=== PATIENT | female | born 1965 | race Caucasian/White ===

== ENCOUNTER → 2021-11-08 09:20 | Outpatient (CLI) | payer OTHER, SELFPAY ==
[2021-11-08 11:38] LABS: COVID19 -Nasal RAPID Negative (Negative)
== END ==
PROVIDERS: PCP Family Medicine; Visit Provider Surgery
DX: Z01.812 Encounter for preprocedural laboratory examination (principal); Z20.822 Contact with and (suspected) exposure to COVID-19
CPT/HCPCS: 87635; C9803

== ENCOUNTER 2021-11-09 08:38 | Day surgery (SDC) | payer OTHER, SELFPAY ==
--- NOTE | 2021-11-09 | PATH_ITS ---
[facility] Accession Number: [id number] . 01 Material submitted: . PART A: colon - ASCENDING COLON POLYP PART B: colon - TRANSVERSE COLON POLYP PART C: sigmoid colon - SIGMOID COLON POLYP 4MM . 01 Diagnosis: A. Ascending Colon, Polyp, Biopsy: Tubular adenoma. . B. Transverse Colon, Polyp, Biopsy: Tubular adenoma. . C. Sigmoid Colon, Polyp 4 mm, Biopsy: Tubular adenoma. MRV 11/13/2021 1057 Local . 01 Electronically signed: . Oralia Gurrola MD, Pathologist NPI- [id number] . 01 Gross description: . Part A: ASCENDING COLON POLYP: Received in formalin is 1 fragment(s) of hicks, soft tissue measuring 0.7 x 0.5 x 0.2 cm submitted entirely in 1 cassette(s) Part B: TRANSVERSE COLON POLYP: Received in formalin is 1 fragment(s) of hicks, soft tissue measuring 0.3 x 0.2 x 0.2 cm submitted entirely in 1 cassette(s) Part C: SIGMOID COLON POLYP 4MM: Received in formalin is 1 fragment(s) of hicks, soft tissue measuring 0.3 x 0.3 x 0.2 cm submitted entirely in 1 cassette(s) /BOGDAN 11/10/2021 1903 Local . 01 Pathologist provided ICD-10: D12.2, D12.3, D12.5 . 01 CPT . 865219, 265531, 824403 Specimen Comment: A courtesy copy of this report has been sent to [phone] Performed at: 01 [facility] [address] [place] [address] Suite [facility], [place], [place] [id number] MD Edi Cherry MD Phone: [phone]
[2021-11-09 09:01] VITALS: BMI 23.6
[2021-11-09 09:07] VITALS: BP 128/72; PULSE 84; RESP 14; TEMP 36.3; O2SAT 100
[2021-11-09] MEDS: LACTATED RINGERS 1,000 ML 84 ML IV (09:12)
--- NOTE | 2021-11-09 10:55 | PM.HP.1 ---
History of Present Illness History of Present Illness Date Patient Seen: 11/09/21 Time Patient Seen: 10:55 Chief complaint: SDC Narrative: Nikki is a 56-year-old woman who has never had a colonoscopy. She has no known family history of colon cancer. Patient History Family & Social History Social History: household members spouse Tobacco & Substance use: Smoking Status Never smoker alcohol intake current alcohol intake frequency a few times a week Substance Use Type does not use Meds Home Medications and Allergies Home Medications Medication Instructions Recorded Confirmed Type Emergen-C 1,000 mg DAILY 11/09/21 11/09/21 History terbinafine HCl 250 mg tablet 1 tab DAILY 11/09/21 11/09/21 History Allergies Allergy/AdvReac Type Severity Reaction Status Date / Time GRASSES Allergy Unknown Uncoded 11/09/21 08:55 Exam Vital Signs (past 8 hours): - 11/09/21 09:07 Temperature 97.4 F L Pulse Rate 84 Respiratory Rate 14 Blood Pressure 128/72 Pulse Oximetry 100 Oxygen Delivery Method Room Air Oxygen Delivery Method Room Air Const General: healthy appearing Resp Effort & Inspection: normal respiratory effort Neuro General: patient alert and patient awake Assessment & Plan Assessment and plan (1) Colon cancer screening: Status: Acute Plan Reviewed the risks and benefits of colonoscopy. She would like to proceed. COVID-19 COVID-19 status: Negative Result date/Date tested (Pos, Neg/Pending): 11/08/21 Time Spent With Patient Critical Care time: I spent a total of [] minutes of critical care time on this patient's care today; this time is exclusive of procedural time.
[2021-11-09] MEDS: MIDAZOLAM 5 MG/5 ML VIAL IV (11:11)
[2021-11-09] MEDS: fentaNYL 250 MCG/5 ML INJ 125 MCG IV (11:11)
--- NOTE | 2021-11-09 11:29 | PM.OP.COLON ---
Operative Date/Time/Diagnoses Date of procedure: 11/09/21 Time of procedure: 11:29 Pre-op diagnosis: Colon cancer screening Post-op diagnosis: same Procedure & Clinicians Study performed: Colonoscopy Same procedure as scheduled: Yes Surgeon: Jasiel Pettit Procedure Notes Procedure in detail: Surgeon: Jasiel Pettit MD Procedure: The patient was brought to the endoscopy suite, placed in left lateral decubitus position. The patient was connected to monitoring devices. A time-out was performed. Sedation was administered. Once the patient was adequately sedated, a digital rectal exam was performed and was normal. The scope was then inserted and advanced to the cecum where the appendiceal orifice was identified and photographed. The scope was then slowly withdrawn over greater than 6 minutes. The mucosa was thoroughly inspected. There was a 5 mm polyp in the ascending colon removed with cold snare. There was a 3 mm polyp in the transverse colon removed with a cold snare. There was a 4 mm polyp in the sigmoid colon removed with a cold snare. The scope was retroflexed in the rectum. No abnormalities were noted. The scope was straightened and removed. The patient was awakened and brought to recovery. Versed: 5 mg Fentanyl: 125 mcg EBL: 5 mL Findings: Small polyps in the ascending colon, transverse colon and sigmoid colon Scope withdrawal time: 14 Sedation minutes: 25 Post-procedure Disposition: PACU
[2021-11-09 11:33] VITALS: BP 108/65; PULSE 72; RESP 14; TEMP 36.2; O2SAT 100
[2021-11-09 11:38] VITALS: BP 110/67; PULSE 69; RESP 14; O2SAT 100
[2021-11-09 11:42] VITALS: BP 110/67; PULSE 77; RESP 16; TEMP 36.1; O2SAT 100
[2021-11-09 11:47] VITALS: BP 108/71; PULSE 98; RESP 14; TEMP 36.2; O2SAT 100
== END 2021-11-09 11:56 | disposition home or self-care (01) ==
PROVIDERS: PCP Family Medicine; Referring Provider Surgery; Visit Provider Surgery
PROC: 0DJD8ZZ Inspection of Lower Intestinal Tract, Via Natural or Artificial Opening Endoscopic (ICD-10-PCS; CPT 45378; principal; 2021-11-09 10:00)
DX: Z12.11 Encounter for screening for malignant neoplasm of colon (principal); D12.2 Benign neoplasm of ascending colon; D12.3 Benign neoplasm of transverse colon; D12.5 Benign neoplasm of sigmoid colon
CPT/HCPCS: 45385; 99152; 99153; J2250; J3010